=== PATIENT | female | born 1940 | race Caucasian/White ===

== ENCOUNTER → 2021-04-08 | Outpatient (CLI) | payer MEDICARE ==
--- NOTE | 2021-04-08 11:52 | XR ---
EXAMINATION TYPE: XR cervical spine limited DATE OF EXAM: 04/08/2021 TECHNIQUE: AP lateral and odontoid view were obtained of the cervical spine HISTORY: M50.32 DJD M48.02 Spinal Stenosis M48.32 Traumatic COMPARISON: None FINDINGS: The dens is poorly visualized on the odontoid view on this study. Repeat images were obtain ed which show lucency at the base of the dens suggestive of Mach effect with osteopenia. . A CT could be obtained if clinically indicated. There is moderate diffuse bony demineralization. C7-T1 is visua lized. No loss of vertebral body height. There is narrowing of the intervertebral disc spaces most pr ominent at C5-6, C6-7 and C7-T1. Minimal anterolisthesis of C3 on C4-C5 on C6 and C7 on T1. Degenerat issac changes of the facets. Prevertebral soft tissues are unremarkable. IMPRESSION: 1. There is a lucency at the base of the dens on odontoid view. 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 An underlying fracture cannot be excluded on this study. A CT of the cervical spi ne could be obtained if clinically indicated. 2. Multilevel degenerative changes of the cervical spine as described above.
== END ==
LOC: RADXRMAIN 09:58
PROVIDERS: ATTEND Chiropractor
DX: M47.892 Other spondylosis, cervical region (principal)
CPT/HCPCS: 72040

== ENCOUNTER → 2023-05-15 | Outpatient (CLI) | payer MEDICARE ==
--- NOTE | 2023-05-16 10:19 | CA ---
Transthoracic Echo Report Name: Maricarmen Barillas Age: 83 Gender: F : 1940 Exam Date: 05/15/2023 16:57 Exam Location: [facility] Ht (in): 61 Wt (lb): 127 Ordering Physician: Sohail Lopez DO Attending/Referring Phys: Applied Mat[employer]ian Yanique Jean-Baptiste RDCS Procedure CPT: Indications: R01.1 Cardiac Hx: Technical Quality: Good Contrast 1: Total Dose (mL): Contrast 2: Total Dose (mL): MEASUREMENTS (Male / Female) Normal Values 2D ECHO LV Diastolic Diameter PLAX 4.1 cm 4.2 - 5.9 / 3.9 - 5.3 cm LV Systolic Diameter PLAX 2.5 cm IVS Diastolic Thickness 1.2 cm 0.6 - 1.0 / 0.6 - 0.9 cm LVPW Diastolic Thickness 0.9 cm 0.6 - 1.0 / 0.6 - 0.9 cm LV Relative Wall Thickness 0.5 RV Internal Dim ED PLAX 2.4 cm LA Systolic Diameter LX 3.2 cm 3.0 - 4.0 / 2.7 - 3.8 cm LV Diastolic Volume MOD 4C 64.5 cm??? LV Systolic Volume MOD 4C 24.8 cm??? LV Ejection Fraction MOD 4C 61.5 % LV Cardiac Index MOD 4C 1951.4 cm???/min???m??? LV Diastolic Length 4C 7.2 cm LV Systolic Length 4C 5.7 cm LV Diastolic Volume MOD 2C 47.1 cm??? LV Systolic Volume MOD 2C 21.5 cm??? LV Ejection Fraction MOD 2C 54.4 % LV Cardiac Index MOD 2C 1260.2 cm???/min???m??? LV Diastolic Length 2C 7.1 cm LV Systolic Length 2C 6.0 cm LA Volume 49.7 cm??? 18 - 58 / 22 - 52 cm??? M-MODE Aortic Root Diameter MM 2.8 cm MV E Point Septal Separation 0.5 cm AV Cusp Separation MM 1.6 cm DOPPLER AV Peak Velocity 171.0 cm/s AV Peak Gradient 11.7 mmHg MV Area PHT 3.1 cm??? Mitral E Point Velocity 95.0 cm/s Mitral A Point Velocity 134.3 cm/s Mitral E to A Ratio 0.7 MV Deceleration Time 244.8 ms MV E' Velocity 7.2 cm/s Mitral E to MV E' Ratio 13.2 FINDINGS Left Ventricle Left ventricular ejection fraction is estimated at 55-60 %. Left ventricular cavity size normal. Mildly increased septal wall thickness. Normal left ventricular wall motion. Right Ventricle Normal right ventricular size and function. Unable to estimate the right ventricular systolic pressure. Right Atrium Normal right atrial size. Left Atrium Normal left atrial size. Mitral Valve Structurally normal mitral valve. No mitral stenosis, regurgitation or prolapse. Mitral annular calcification. Aortic Valve Trileaflet aortic valve. Aortic valve sclerosis. Thickened aortic valve without stenosis. Tricuspid Valve Structurally normal tricuspid valve. No tricuspid stenosis, regurgitation or prolapse. Pulmonic Valve Structurally normal pulmonic valve. No pulmonic regurgitation. Pericardium Normal pericardium. No pericardial effusion. Aorta Normal size aortic root and proximal ascending aorta. CONCLUSIONS Normal LV systolic function Previewed by: Dr. Jeremie Keenan MD (Electronically Signed) Final Date: 16 May 2023 10:18
== END | disposition home or self-care (01) ==
LOC: RADECHMAIN 16:43
PROVIDERS: ATTEND Family Medicine
DX: R01.1 Cardiac murmur, unspecified (principal)
CPT/HCPCS: 93306